=== PATIENT | male | born 1995 | race Caucasian/White ===

== ENCOUNTER 2023-12-06 10:44 | Emergency (ER) | payer OTHER ==
[2023-12-06 10:59] VITALS: BP 159/96; PULSE 52
[2023-12-06] MEDS: Ketorolac 30 MG/ML SDV IM ONE (11:01)
== END 2023-12-06 11:20 | disposition home or self-care (01) ==
LOC: VM.ED 10:44
DX: K04.7 Periapical abscess without sinus (principal); Z91.048 Other nonmedicinal substance allergy status
CPT/HCPCS: 96372; 99282; J1885